=== PATIENT | female | born 1940 | race Caucasian/White ===

== ENCOUNTER 2016-10-27 15:15 | Emergency (ER) | payer OTHER ==
[~2016-10-27] VITALS: Ht 167.6 cm; Wt 74.8 kg
[2016-10-27 15:15] VITALS: BP_SYST 129
[2016-10-27 15:45] LABS: BILIRUBIN,URINE NEGATIVE (NEGATIVE); BLOOD, URINE NEGATIVE (NEGATIVE); CLARITY/URINE HAZY (CLEAR); COLOR,URINE YELLOW (YELLOW); GLUCOSE,URINE NEGATIVE (NEGATIVE); KETONES,URINE NEGATIVE (NEGATIVE); LEUKOCYTE ESTERASE ,URINE 3+ (NEGATIVE); NITRITE, URINE NEGATIVE (NEGATIVE); PROTEIN URINE NEGATIVE (NEGATIVE); UROBILINOGEN,URINE 0.2 (0.2-1.0)
[2016-10-27 15:53] LABS: BACTERIA,URINE MODERATE /HPF (None Seen); MUCUS,URINE None Seen /LPF (None Seen); RBC,URINE NONE SEEN /HPF (0-3); WBC,URINE 50-80 /HPF (0-3)
[2016-10-27] MEDS ORDERED: NACL 0.9% 1,000 ML IV ONE (16:00)
[2016-10-27] MEDS ORDERED: KETOROLAC TROMETHAMINE 30 MG VIAL IVP ONE (16:00)
[2016-10-27 16:02] LABS: HEMATOCRIT 31.7 % (36-48); HEMOGLOBIN 10.6 g/dL (12.0-16.0); MEAN CORPUSCULAR HEMOGLOBIN 32 pg (27-31); MEAN CORPUSCULAR HGB CONC 34 % (32-36); MEAN CORPUSCULAR VOLUME 94 fL (79.0-98.0); PLATELET COUNT (AUTO) 235 K/uL (130-430); RED BLOOD CELL COUNT(AUTO) 3.37 MIL/uL (4.2-6.2); RED CELL DISTRIBUTION WIDTH 13.7 % (9.0-15.0); WHITE BLOOD COUNT (AUTO) 5.4 K/uL (4.8-10.8)
[2016-10-27 16:12] LABS: INR 1.9 (0.8-1.2); PROTHROMBIN TIME 20.9 SECS (9.5-12.5)
[2016-10-27 16:21] LABS: ATYPICAL LYMPHOCYTES % 0 % (0-0); BAND % (MANUAL) 2 % (0-6); BASOPHILS % (MANUAL) 0 % (0-2); EOSINOPHILS % (MANUAL) 0 % (0-7); LYMPHOCYTES % (MANUAL) 19 % (20-46); MONOCYTES % (MANUAL) 10 % (0-11)
[2016-10-27 16:22] LABS: ANION GAP 5 (5-15); CALCIUM 8.6 mg/dL (8.4-11.0); CHLORIDE 93 mmol/L (98-107); CREATININE 0.91 mg/dL (0.55-1.30); GLUCOSE 95 mg/dL (70-99); POTASSIUM 4.9 mmol/L (3.5-5.1); SODIUM SERUM 125 mmol/L (136-145); UREA NITROGEN, BLOOD 20 mg/dL (8-21)
[2016-10-27 16:27] LABS: ALANINE AMINOTRANSFERASE 19 U/L (12-78); ALBUMIN 3.2 g/dL (3.4-4.8); ASPARTATE AMINOTRANSFERASE 27 U/L (10-37); TOTAL BILIRUBIN 0.3 mg/dL (0.0-1.0); TOTAL PROTEIN, SERUM 7.9 g/dL (6.4-8.3)
[2016-10-27] MEDS ORDERED: METO1TAB40 PO (17:58)
[2016-10-27] MEDS ORDERED: LEVO25TA58 PO (17:58)
[2016-10-27] MEDS ORDERED: ISO10 PO (17:58)
[2016-10-27] MEDS ORDERED: LOSA1TAB34 PO (17:58)
[2016-10-27] MEDS ORDERED: PRAV10TA PO (17:58)
[2016-10-27] MEDS ORDERED: MULT-1117 PO (17:58)
[2016-10-27] MEDS ORDERED: NITR0.4T6 SL (17:58)
[2016-10-27] MEDS ORDERED: WARF5TAB2 PO (17:58)
[2016-10-27] MEDS ORDERED: LEVOFLOXACIN 500 MG/D5W 100 ML IV ONE (18:00)
[2016-10-27 19:20] VITALS: BP_SYST 104
== END 2016-10-27 19:20 | disposition home or self-care (01) ==
LOC: SED 15:15
DX: N39.0 Urinary tract infection, site not specified (principal); E87.1 Hypo-osmolality and hyponatremia; D64.9 Anemia, unspecified; I10 Essential (primary) hypertension; Z88.0 Allergy status to penicillin; Z88.2 Allergy status to sulfonamides; Z90.89 Acquired absence of other organs; Z79.899 Other long term (current) drug therapy
CPT/HCPCS: 36415; 74176; 80053; 81000; 83605; 85007; 85027; 85610; 85730; 87040; 87086; 93005; 96361; 96365; 96375; 99285; J1885; J1956; J7030; 96374

== ENCOUNTER 2016-12-22 23:26 | Emergency (ER) | payer OTHER ==
[~2016-12-22] VITALS: Ht 165.1 cm; Wt 75.3 kg
[~2016-12-22 23:26] MED LIST: ISO10 PO; LEVO25TA58 PO; LOSA1TAB34 PO; METO1TAB40 PO; MULT-1117 PO; NITR0.4T6 SL; PRAV10TA PO; WARF5TAB2 PO
--- NOTE | 2016-12-22 23:32 | NUR ---
Patient to ER bed 6 to gown for evaluation. Side rails up. Report given to Farhad ORNELAS.
[2016-12-22 23:35] VITALS: BP_SYST 118
--- NOTE | 2016-12-22 23:35 | NUR ---
Patient arrived to ED a/o x 4 with complaint of vaginal bleed. Patient reports getting up to use restroom at approximately 2200 when she noticed blood saturated underwear and blood present in the toilet. Patient presents to ED with one blood stained pad applied to the vagina. Patient reports left sided back pain upon standing. Denies fever. Denies N/V. Friend at bedside. Will continue to monitor.
[2016-12-23] MEDS ORDERED: TOPXL100 PO (00:14)
[2016-12-23] MEDS ORDERED: LOSA50TA3 PO (00:14)
--- NOTE | 2016-12-23 00:14 | NUR ---
Medication reconciliation completed with information provided by patient. Any prior medication reconciliation on file was reviewed and corrected.
--- NOTE | 2016-12-23 00:40 | NUR ---
ER MD Russell at bedside for evaluation
[2016-12-23] MEDS ORDERED: NACL 0.9% 1,000 ML IV ONE (00:54)
--- NOTE | 2016-12-23 01:05 | NUR ---
# 14 FR In and Out catheter with use of sterile technique. Immediate return of 200 ml clear yellow urine noted. Urine sample collected and sent to lab. Pt tolerated procedure well. Patient unable to toilet self.
--- NOTE | 2016-12-23 01:25 | NUR ---
# 22 gauge angiocath placed to forearm. Use of asceptic technique. Opsite placed over site. Blood return noted. Blood for lab drawn from site. Flushed with 10 cc of normal saline. No evidence of infiltration noted. Patient tolerated well.
[2016-12-23 01:26] LABS: BILIRUBIN,URINE NEGATIVE (NEGATIVE); CLARITY/URINE CLEAR (CLEAR); COLOR,URINE YELLOW (YELLOW); GLUCOSE,URINE NEGATIVE (NEGATIVE); KETONES,URINE NEGATIVE (NEGATIVE); LEUKOCYTE ESTERASE ,URINE NEGATIVE (NEGATIVE); NITRITE, URINE NEGATIVE (NEGATIVE); PH,URINE 6.5 (5.0-8.0); PROTEIN URINE NEGATIVE (NEGATIVE); UROBILINOGEN,URINE 0.2 (0.2-1.0)
[2016-12-23 01:27] LABS: BLOOD, URINE TRACE (NEGATIVE)
--- NOTE | 2016-12-23 01:30 | NUR ---
Medicated per MD orders. IVF infusing with no s/s of infiltration at this time. Will cont to monitor
[2016-12-23 01:32] LABS: BACTERIA,URINE FEW /HPF (None Seen); MUCUS,URINE None Seen /LPF (None Seen); RBC,URINE 0-3 /HPF (0-3); WBC,URINE 0-3 /HPF (0-3)
[2016-12-23 01:42] LABS: BASOPHILS % (AUTO) 0.9 % (0.0-2.0); EOSINOPHILS # (AUTO) 0.1 K/uL (0.0-0.4); EOSINOPHILS % (AUTO) 2.2 % (0.0-4.0); HEMATOCRIT 31.6 % (36-48); HEMOGLOBIN 10.5 g/dL (12.0-16.0); LYMPHOCYTES # (AUTO) 1.2 K/uL (1.0-5.5); LYMPHOCYTES % (AUTO) 23.7 % (20.5-51.5); MEAN CORPUSCULAR HEMOGLOBIN 31 pg (27-31); MEAN CORPUSCULAR HGB CONC 33 % (32-36); MEAN CORPUSCULAR VOLUME 94 fL (79.0-98.0); MONOCYTES # (AUTO) 0.5 K/uL (0.0-1.0); MONOCYTES % (AUTO) 9.7 % (1.7-9.3); NEUTROPHILS # (AUTO) 3.1 K/uL (1.8-7.7); NEUTROPHILS % (AUTO) 63.5 % (40.0-70.0); PLATELET COUNT (AUTO) 239 K/uL (130-430); RED BLOOD CELL COUNT(AUTO) 3.34 MIL/uL (4.2-6.2); RED CELL DISTRIBUTION WIDTH 12.7 % (9.0-15.0); WHITE BLOOD COUNT (AUTO) 4.9 K/uL (4.8-10.8)
[2016-12-23 01:48] LABS: ANION GAP 6 (5-15); CHLORIDE 91 mmol/L (98-107); GLUCOSE 95 mg/dL (70-99); POTASSIUM 4.6 mmol/L (3.5-5.1); SODIUM SERUM 123 mmol/L (136-145); UREA NITROGEN, BLOOD 19 mg/dL (8-21)
[2016-12-23 01:50] LABS: INR 1.7 (0.8-1.2)
[2016-12-23 01:52] LABS: ALANINE AMINOTRANSFERASE 21 U/L (12-78); ALBUMIN 3.4 g/dL (3.4-4.8); ASPARTATE AMINOTRANSFERASE 28 U/L (10-37); TOTAL BILIRUBIN 0.4 mg/dL (0.0-1.0)
--- NOTE | 2016-12-23 02:10 | NUR ---
Rectal exam performed by Drew with Maliha RN at bedside during procedure. Sample obtained for occult blood testing. Patient tolerated well.
--- NOTE | 2016-12-23 02:40 | NUR ---
ED MD Boek at bedside reassessing patient.
[2016-12-23 03:10] VITALS: BP_SYST 110
--- NOTE | 2016-12-23 03:10 | NUR ---
Patient given written and verbal discharge instructions and verbalizes understanding. ER MD discussed with patient the results and treatment provided. Patient in stable condition. ID arm band removed. IV catheter removed intact and dressing applied, no active bleeding. No Rx given. Patient educated on pain management and to follow up with PMD. Pain Scale 0/10 at this patient. Opportunity for questions provided and answered.
== END 2016-12-23 03:10 | disposition home or self-care (01) ==
LOC: SED 23:26
DX: N93.9 Abnormal uterine and vaginal bleeding, unspecified (principal); Z90.710 Acquired absence of both cervix and uterus
CPT/HCPCS: 36415; 80053; 81000; 82272; 85025; 85610; 93005; 96360; 96361; 99285; J7030